=== PATIENT | female | born 1985 | race Caucasian/White ===

== ENCOUNTER → 2022-11-16 | Outpatient (CLI) | payer OTHER ==
--- NOTE | 2022-11-19 07:50 | MM ---
Reason for Exam: Screening (asymptomatic). Baseline mammogram. Patient History: Menarche at age 12. Patient has no children. Premenopausal. Last menstrual period: 10/24/2022 Risk Values: Blaire 5 year model risk: 0.4%. NCI Lifetime model risk: 12.3%. Prior Study Comparison: Patient's first Mammogram. Tissue Density: The breast tissue is heterogeneously dense. This may lower the sensitivity of mammography. Findings: Analyzed By CAD. There is no suspicious group of microcalcifications or new suspicious mass in either breast. Overall Assessment: Negative, BI-RAD 1 Management: Screening Mammogram of both breasts in 1 year. A clinical breast exam by your physician is recommended on an annual basis and results should be correlated with mammographic findings. Electronically signed and approved by: Leonardo Hidalgo M.D. Radiologis
== END | disposition home or self-care (01) ==
LOC: RADMAMWWP 13:39
PROVIDERS: ATTEND Family Medicine
DX: Z12.31 Encounter for screening mammogram for malignant neoplasm of breast (principal)
CPT/HCPCS: 77067

== ENCOUNTER 2025-03-23 07:16 | Observation (INO) | payer BC, OTHER ==
--- NOTE | 2025-03-23 07:50 | ED ---
General Adult HPI - General Chief complaint: Neuro Symptoms/Deficit Stated complaint: Tremors for 6 wks Time Seen by Provider: 03/23/25 07:19 Source: patient, family Mode of arrival: ambulatory Limitations: no limitations - History of Present Illness Initial comments: Dictation was produced using [employer] dictation software. please excuse any grammatical, word or spelling errors. Chief Complaint: 39-year-old female presents to the emergency department with uncontrollable tremors History of Present Illness: Patient is a 39-year-old female presents emergency department uncontrollable tremors. Patient has been having intractable symptoms for the last 6 weeks. She did follow-up with a neurologist out of [place]. She had her initial intake appointment had an MRI that showed a 2 mm punctate lesion in the left frontal area. Patient was prescribed baclofen. She was not given much details from the neurologist as to what is going on with her con dition. Has not had her follow-up appointment. Patient states that over the last 48 hours her symptoms progressed to the point where it is uncontrollable and unrelenting despite medication treatment. Denies any other symptoms. States that her symptoms affect her right leg and sometimes her right arm. States that she gets a little dizzy when she has these episodes.Patient does not take any medications outside of what was prescribed by neurology. Patient gets regular Depo shots. denies states that she is not sexually active The ROS documented in this emergency department record has been reviewed and confirmed by me. Those systems with pertinent positive or negative responses have been documented in the HPI. All other systems are other negative and/or noncontributory. - Related Data Allergies Allergy/AdvReac Type Severity Reaction Status Date / Time No Known Allergies Allergy Verified 03/23/25 07:20 Review of Systems ROS Statement: Those systems with pertinent positive or pertinent negative responses have been documented in the HPI. ROS Other: All systems not noted in ROS Statement are negative. Past Medical History Additional Past Medical History / Comment(s): endometreosis Past Surgical History: Appendectomy Smoking Status: Former smoker General Exam - General Exam Comments Initial Comments: PHYSICAL EXAM: General Impression: Alert and oriented x3, not in acute distress HEENT: Normocephalic atraumatic, extra-ocular movements intact, pupils equal and reactive to light bilaterally, mucous membranes moist. Cardiovascular: Heart regular rate and rhythm Chest: Able to complete full sentences, no retractions, no tachypnea Abdomen: abdomen soft, non-tender, non-distended, no organomegaly Musculoskeletal: Pulses present and equal in all extremities, no peripheral ed glaen Motor: no focal deficits noted Neurological: CN II-XII grossly intact, no focal motor or sensory deficits noted, persistent right lower extremity tremors despite intentional movement Skin: Intact with no visualized rashes Psych: Normal affect and mood Limitations: no limitations Course Vital Signs 03/23/25 03/23/25 07:18 07:37 Temperature 98.2 F 99.1 F Pulse Rate 122 H 104 H Respiratory 20 16 Rate Blood Pressure 122/70 O2 Sat by Pulse 98 99 Oximetry - Reevaluation(s) Reevaluation #1: 03/23/25 07:54 Case discussed with on-call neurologist, Dr. Brad rawls recommends that patient be admitted observation for seizure evaluation. Recommends EEG and observation admission. Request that after EEG be performed patient be given Ativan and Keppra Medical Decision Making - Medical Decision Making Was pt. sent in by a medical professional or institution (, PA, IMAGE CONSULTANT, urgent care, hospital, or halfway...) When possible be specific @ -No Did you speak to anyone other than the patient for history (EMS, parent, family, police, friend...)? What history was obtained from this source @ -No Did you review nursing and triage notes (agree or disagree)? Why? @ -I reviewed and agree with nursing and triage notes Were old charts reviewed (outside hosp., previous admission, EMS record, old EKG, old radiological studies, urgent care reports/EKG's, halfway records)? Report findings @ -No old charts were reviewed Differential Diagnosis (chest pain, altered mental status, abdominal pain women, abdominal pain men, vaginal bleeding, musculoskeletal, weakness, fever, dyspnea, syncope, headache, dizziness, GI bleed, back pain, seizure, CVA, palpatations, mental health)? @ -Differential Seizure: Recurrent seizure disorder, febrile seizure, alcohol withdrawal, stimulants, meningitis, encephalitis, intercranial hemorrhage, intracranial tumor, stroke, eclampsia, thyrotoxicosis, hypocalcemia, hyponatremia, hypernatremia, hypomagnesemia, psychogenic, this is not meant to be an all-inclusive list. EKG interpreted by me (3pts min.). @ -None done X-rays interpreted by me (1pt min.). @ -None done CT interpreted by me (1pt min.). @ -None done U/S interpreted by me (1pt. min.). @ -None done What testing was considered but not performed or refused? (CT, X-rays, U/S, labs)? Why? @ -None What meds were considered but not given or refused? Why? @ -None Was smoking cessation discussed for >3mins.? @ -No Were there social determinants of health that impacted care today? How? (Homelessness, low income, unemployed, alcoholism, drug addiction, transportation, low edu. Level, literacy, decrease access to med. care, mcc, rehab)? @ -No Was there de-escalation of care discussed even if they declined (Discuss DNR or withdrawal of care, Hospice)? DNR status @ -No What co-morbidities impacted this encounter? (DM, HTN, Smoking, COPD, CAD, Cancer, CVA, ARF, Chemo, Hep., AIDS, mental health diagnosis, sleep apnea, morbid obesity)? @ -None Was patient admitted / discharged? Hospital course, mention meds given and route, prescriptions, significant lab abnormalities, going to OR and other pertinent info. @ -31-year-old female presents to the ER for intractable tremors. Vital signs stable. Case discussed with neurology recommend observation admission for seizure evaluation. Labs unremarkable. Case discussed with hospitalist for admission Did you discuss the management of the patient with other professionals (professionals i.e. , PA, IMAGE CONSULTANT, lab, RT, psych nurse, social media assistant, digital media director, teacher, air crew officer, block and case maker)? Give summary @ -See above Was critical care preformed (if so, how long)? @ -Intractable tremors Undiagnosed new problem with uncertain prognosis? @ -No Drug Therapy requiring intensive monitoring for toxicity (Heparin, Nitro, Insulin, Cardizem)? @ -No Were any procedures done? @ -No Diagnosis/symptom? Acute, or Chronic, or Acute on Chronic? Uncomplicated (without systemic symptoms) or Complicated (systemic symptoms)? @ -Intractable tremors Side effects of treatment? @ -No Exacerbation, Progression, or Severe Exacerbation? @ -No Poses a threat to life or bodily function? How? (Chest pain, USA, MD, pneumonia, PE, COPD, DKA, ARF, appy, cholecystitis, CVA, Diverticulitis, Homicidal, Suicidal, threat to staff... and all critical care pts) @ -yes - Lab Data Result diagrams: 03/23/25 08:13 03/23/25 08:13 Lab Results 03/23/25 03/23/25 Range/Units 08:13 08:13 WBC 5.93 (4.50-10.00) 10*3/uL RBC 4.83 (4.10-5.20) 10*6/uL Hgb 14.2 (12.0-15.0) g/dL Hct 40.9 (37.2-46.3) % MCV 84.7 (80.0-97.0) fL MCH 29.4 (27.0-32.0) pg MCHC 34.7 (32.0-37.0) g/dL Plt Count 256 (140-440) 10*3/uL MPV 10.4 (9.5-12.2) fL Immature Gran % (Auto) 0.2 % Neutrophils % 60.6 % Lymphocytes % 32.5 % Monocytes % 5.6 % Eosinophils % 0.8 % Basophils % 0.3 % Immature Gran # 0.01 (0.00-0.04) 10*3/uL Neutrophils # 3.59 (1.80-7.70) 10*3/uL Lymphocytes # 1.93 (0.90-5.00) 10*3/uL Monocytes # 0.33 (0.20-1.00) 10*3/uL Eosinophils # 0.05 (0.04-0.35) 10*3/uL Basophils # 0.02 (0.00-0.10) 10*3/uL Sodium 139 (137-145) mmol/L Potassium 4.1 (3.5-5.1) mmol/L Chloride 110 H (98-107) mmol/L Carbon Dioxide 19 L (22-30) mmol/L Anion Gap 10 mmol/L BUN 11 (7-17) mg/dL Creatinine 0.76 (0.52-1.04) mg/dL Est GFR (CKD-EPI)AfAm >90 (>60 ml/min/1.73 sqM) Est GFR (CKD-EPI)NonAf >90 (>60 ml/min/1.73 sqM) Glucose 88 (74-99) mg/dL Calcium 9.4 (8.4-10.2) mg/dL Disposition Clinical Impression: Coarse tremors Disposition: ADMITTED IP TO THIS HOSP Condition: Fair Referrals: Love Rea DO [Primary Care Provider] - 1-2 days Decision Time: 09:03
[2025-03-23 08:20] LABS: Basophils # (A) 0.02 10*3/uL (0.00-0.10); Basophils % (A) 0.3 %; Eosinophils # (A) 0.05 10*3/uL (0.04-0.35); Eosinophils % (A) 0.8 %; HCT 40.9 % (37.2-46.3); HGB 14.2 g/dL (12.0-15.0); Lymphocytes # (A) 1.93 10*3/uL (0.90-5.00); Lymphocytes % (A) 32.5 %; MCH 29.4 pg (27.0-32.0); MCHC 34.7 g/dL (32.0-37.0); MCV 84.7 fL (80.0-97.0); Monocytes # (A) 0.33 10*3/uL (0.20-1.00); Monocytes % (A) 5.6 %; Neutrophils # (A) 3.59 10*3/uL (1.80-7.70); Neutrophils % (A) 60.6 %; Platelet Count 256 10*3/uL (140-440); RBC 4.83 10*6/uL (4.10-5.20); RDW 12.5 % (11.5-14.5); WBC 5.93 10*3/uL (4.50-10.00)
[2025-03-23] MEDS: SODIUM CHLORIDE 0.9% 1,000 ML IV STA (08:29)
[2025-03-23 08:39] LABS: African American GFR (CKD) >90 (>60 ml/min/1.73 sqM); Anion Gap 10 mmol/L; Blood Urea Nitrogen 11 mg/dL (7-17); Calcium 9.4 mg/dL (8.4-10.2); Carbon Dioxide 19 mmol/L (22-30); Chloride 110 mmol/L (98-107); Glucose 88 mg/dL (74-99); Non-African American GFR(CKD) >90 (>60 ml/min/1.73 sqM); Potassium 4.1 mmol/L (3.5-5.1); Sodium 139 mmol/L (137-145)
[2025-03-23] MEDS ORDERED: NALOXONE 0.4 MG/ML 1 ML VIAL IV PRN (09:00)
[2025-03-23] MEDS: SODIUM CHLORIDE 0.9% 1,000 ML IV SCH (09:40)
[2025-03-23] MEDS: LORazepam 1 MG/0.5 ML VIAL IV STA (11:56)
--- NOTE | 2025-03-23 12:03 | XR ---
EXAMINATION TYPE: XR chest 1V portable DATE OF EXAM: 03/23/2025 COMPARISON: NONE CLINICAL INDICATION: Female, 39 years old with history of shortness of breath; , TECHNIQUE: XR chest 1V portable views of the chest. FINDINGS: The lungs are clear and there is no pneumothorax, pleural effusion, or focal pneumonia. Heart size normal and no overt failure. Osseous structures intact vague nodule left lung base most likely relate d to nipple shadow.. IMPRESSION: 1. No acute process. Vague nodule left lung base most likely related to nipple shadow. Short-term fol low-up repeat chest x-ray with nipple markers could be obtained for confirmation. [facility], , 03/23/2025 12:01 PM
--- NOTE | 2025-03-23 13:52 | P.CNNES ---
History of Present Illness Consult date: 03/23/25 Requesting physician: Moises Dumas Reason for Consult: tremor vs seizure History of Present Illness: This is a 39-year-old woman who presents emergency department because of uncontrollable shaking of her extremities predominantly right lower. She states she has been having intermittent tremor of the right lower more than the left lower sometimes involving the upper going on for a while but happens sporadically but she does not lose consciousness, urinary or bowel incontinence or tongue bite. It seems over the past 6 weeks she has been having worsening dizziness, blurry vision, worsening of the tremor predominant in the right lower extremity and she tensed up in the upper. She denies any history of seizures. She is being evaluated by a neurologist over in [facility] team. She had MRI of the brain towards the end of January 2025 and it is reported that there is a small T2 white matter lesion over subcortical frontal suggestive of chronic microvascular disease. No enhancement. Also had MRI cervical spine and thoracic spine and there is also no enhancement but showed disc protrusion over the C5-C6 level with mild spinal canal narrowing as well as T11-T12 with mild to moderate spinal canal narrowing. She has a follow-up appointment towards approximately middle of March with her outpatient neurologist. For her tremor she was given Robaxin by her outpatient neurologist and she stated that it did not help. But then her primary care physician started on baclofen and she feels there is improvement with her tremor. She stated that her primary care physician felt it was more anxiety and started her on Lexapro for over the last 6 to 7 months and she stated that she does not have any benefits. She denies any stressors. Review of Systems As per HPI. Past Medical History Additional Past Medical History / Comment(s): endometreosis Past Surgical History: Appendectomy Smoking Status: Former smoker Medications and Allergies Home Medications Medication Instructions Recorded Confirmed Type Baclofen 10 mg PO TID 03/23/25 03/23/25 History Escitalopram Oxalate [Lexapro] 10 mg PO HS 03/23/25 03/23/25 History SUMAtriptan succinate [Imitrex] 50 mg PO DAILY PRN 03/23/25 03/23/25 History Ubrogepant [Ubrelvy] 100 mg PO DAILY PRN 03/23/25 03/23/25 History medroxyPROGESTERone [Depo-Provera] 150 mg IM Q90D 03/23/25 03/23/25 History Allergies Allergy/AdvReac Type Severity Reaction Status Date / Time No Known Allergies Allergy Verified 03/23/25 09:41 Physical Examination - Vital Signs Vital Signs: Vital Signs Temp Pulse Resp BP Pulse Ox 03/23/25 12:02 63 16 99/65 98 03/23/25 07:37 99.1 F 104 H 16 165/129 99 03/23/25 07:18 98.2 F 122 H 20 122/70 98 Intake and Output 03/22/25 03/23/25 03/23/25 22:59 06:59 14:59 Other: Weight 54.431 kg GENERAL: The patient is sitting in a recliner chair and is not in acute distress. NEUROLOGICAL: Higher mental function: The patient is awake, alert, oriented to self, place and time. Patient is following commands. No aphasia and no neglect. Cranial nerves: The pupils are round, equal and reactive to light and accommodation. Visual de leon are full to confrontation throughout. Extraocular movement is intact no nystagmus is noted. Facial sensation is normal to touch throughout. The facial strength is normal throughout. Hearing is normal bilaterally to hand rub. Tongue is midline and moved [id number] without any difficulty. No dysarthria is noted. Shoulder shrug is normal bilaterally. Motor: The strength is to assess individual muscle strength because of her tremor and patient was having tremor initially over the right lower extremity that is nonrhythmic that changes with intensity and she is verbalizing and following commands during this episode. During this episode she was being hooked up on the EEG and upon telling her that it is good that we will capture this episode and that we need to capture more her tremor got worse and involved bilateral lower and at times involved even the upper and again nonrhythmic with change in intensity and she is verbalizing during this episode. Then it would resolve. She would lift the bilateral upper lower extremity above gravity. Normal bulk. Cerebellum: Normal finger to nose heel to barajas bilaterally. Sensation: Sensation is normal to touch throughout. Reflexes (right/left): Hard to assess reflexes since upon trying to assess him she was started having tremors. Plantars are downgoing bilaterally. Results - Laboratory Findings CBC and BMP: 03/23/25 08:13 03/23/25 08:13 Abnormal Lab Findings: Abnormal Labs 03/23/25 08:13 Chloride 110 H Carbon Dioxide 19 L Assessment and Plan Assessment: This is a 39-year-old woman who presents the emergency department because of worsening of her tremor predominantly in the right lower extremity but also involving the left side as well that is nonrhythmic and change in intensity and it seems she has been having it for months but she states it getting worse over the last 6 weeks. She had MRI of the brain cervical spine thoracic spine as an outpatient was evaluated by outpatient neurologist and there is no enhancement or mass on the MRI. She does not have any history of stroke or seizures. Primary care physician as an outpatient felt it was an anxiety and was placed on Lexapro. On my examination I felt was functional and on EEG it captured her episodes and revealed nonepileptic seizures. Tremor is functional neurological disorder. EEG captured episodes and is nonepileptic seizure. Plan: I recommend the patient to continue to follow-up with her outpatient neurologist over in [facility] and she has a follow-up appointment in the middle of March 2025. The patient was given Keppra 1000 mg once as well as Ativan 2 mg once. I will avoid any use of antiseizure medications since these episodes are nonepileptic. Recommend the patient to follow-up with a psychiatrist as well as therapist as an outpatient within 2 weeks. Will defer the rest of the medical management to primary and other specialist I discussed with the plan with patient and her who was at bedside. Thank you for the consultation. No further neurological workup. Will sign off. Please reconsult if needed. Time with Patient: Greater than 30
[2025-03-23] MEDS: levETIRAcetam IV 500 MG/5 ML VIAL IVP STA (15:13)
--- NOTE | 2025-03-23 16:29 | HP ---
HISTORY AND PHYSICAL CHIEF COMPLAINT: Possibly seizures. HISTORY OF PRESENT ILLNESS: This is a 39-year-old woman with a past medical history of endometriosis, being followed by Dr. Lanza in the outpatient, complaining of possibly seizures. The patient was apparently evaluated in the outpatient setting and as well as at [facility] briefly. The patient has uncontrollable movements and tremors of the hands and the patient apparently without any loss of consciousness, bowel incontinence, or tongue bite. The patient came to [facility] and admitted for further evaluation and treatment. There is no history of fever, rigors, or chills at this time. PAST MEDICAL HISTORY: History of endometriosis, appendectomy, and anxiety. MEDICATIONS: Prior to admission include Imitrex, dose and rest of the medications reviewed. ALLERGIES: None. FAMILY HISTORY: No history of heart disease or strokes. SOCIAL HISTORY: Previous smoker. REVIEW OF SYSTEMS: A 14-point review of systems negative except as mentioned earlier. PHYSICAL EXAMINATION: VITAL SIGNS: Pulse is 104, blood pressure ntd, respirations 16. HEENT: Conjunctivae normal. NECK: No jugular venous distention. CARDIOVASCULAR: S1, S2. RESPIRATORY: Breath sounds diminished at the bases. No rhonchi. No crackles. ABDOMEN: Soft, nontender. LEGS: No edema. NERVOUS SYSTEM: Nonfocal. LABORATORY DATA: Reviewed. ASSESSMENT: 1. Abnormal movements, seizures versus pseudoseizures. 2. Decreased CO2. 3. Endometriosis. 4. Anxiety. RECOMMENDATIONS AND DISCUSSION: This is a 39-year-old woman presented with multiple complex medical issues. We will monitor the patient closely. I would recommend telemetry, EEG, closely follow with Neurology. Guarded prognosis because of multiple complex medical conditions. Further recommendations to follow. See orders for details. The patient has received 1 dose of Ativan and Keppra in the ER. MMODL / IJN: [id number] / MTDD
[2025-03-23 17:37] LABS: Bilirubin,Urine Negative (Negative); Blood,Urine Small (Negative); Color,Urine Colorless; Glucose,Urine (UA) Negative (Negative); Ketones,Urine Trace (Negative); Leukocyte Esterase,Urine Negative (Negative); Mucus,Urine Rare /hpf; Nitrite,Urine Negative (Negative); PH, Urine 6.5 (5.0-8.0); Protein,Urine Negative (Negative); RBC,Urine 1 /hpf (0-5); Specific Gravity,Urine 1.019 (1.001-1.035); Squamous Epithelial Cell,Urine 4 /hpf (0-4); Urobilinogen,Urine <2.0 mg/dL (<2.0); WBC,Urine 2 /hpf (0-5)
[2025-03-23 17:51] LABS: Barbiturate Screen,Urine Not Detected (NotDetected); Benzodiazepines Screen,Urine Detected (NotDetected); Opiate Screen,Urine Not Detected (NotDetected); Oxycodone Screen, Urine Not Detected (NotDetected); Phencyclidine Screen,Urine Not Detected (NotDetected); Tricyclic Antidepressant,Urine Not Detected (NotDetected); Urn Cannabinoid Scrn Not Detected (NotDetected)
[2025-03-23] MEDS: HEPARIN SODIUM,PORCINE 5,000 UNIT/ML 1 ML VIAL SQ SCH (20:40)
--- NOTE | 2025-03-24 04:44 | EEG ---
ELECTROENCEPHALOGRAM REPORT CLINICAL HISTORY: This is a 39-year-old woman with right flank shaking. The video EEG is obtained to evaluate for seizure epileptiform activity. RELEVANT MEDICATIONS: 1. Keppra. 2. Ativan. EEG TYPE: This is a routine 21 channel EEG with video using the 10/20 electrode placement system. DESCRIPTION: Wakefulness is only obtained. During awake state, the posterior-dominant rhythm consists of [id number] voltage of 10-11 hertz activity that is well modulated state. There is no physiological stage 2 sleep architecture. There is no focal slowing. Interictal and ictal, the patient had episode of right leg shaken/tremor was captured during this recording and the background shows 10 to 10.5 hertz activity intermixed with myogenic activity and at times, clearly the background is just normal without any significant myogenic activity. Clinically, the patient is having right tremor that is nonrhythmic. Her episode is nonepileptic. There is no epileptiform discharge, or seizure during this EEG. ACTIVATION PROCEDURE: Photic stimulation did not evoke a posterior driving response. There is no abnormality during the photic stimulation. Hyperventilation is not performed. CLINICAL INTERPRETATION: This is a normal routine EEG during awake state. The background is normal. There is no focal slowing. Her episodes are nonepileptic in nature (psychogenic nonepileptic seizure). Otherwise, no epileptiform discharge or seizure. No electrographic seizure is noted. Clinical correlation is recommended. JOSÉ MIGUEL / BLAYNE: [id number] /
[2025-03-24] MEDS: PANTOPRAZOLE 40 MG TABLET PO SCH (06:30)
[2025-03-24 08:02] LABS: Basophils # (A) 0.03 X 10*3/uL (0.00-0.10); Basophils % (A) 0.5 %; Eosinophils # (A) 0.08 X 10*3/uL (0.04-0.35); Eosinophils % (A) 1.4 %; HCT 39.1 % (37.2-46.3); HGB 12.4 g/dL (12.0-15.0); Immature Grans, Automated 0.20 %; Lymphocytes # (A) 2.40 X 10*3/uL (0.90-5.00); Lymphocytes % (A) 43.2 %; MCH 28.8 pg (27.0-32.0); MCHC 31.7 g/dL (32.0-37.0); MCV 90.9 FL (80.0-97.0); Monocytes # (A) 0.35 X 10*3/uL (0.20-1.00); Monocytes % (A) 6.3 %; NRBC Per 100 WBC 0 X 10*3/uL (0.00-0.01); Neutrophils # (A) 2.69 X 10*3/uL (1.80-7.70); Neutrophils % (A) 48.4 %; Platelet Count 227 X 10*3/uL (140-440); RBC 4.30 X 10*6/uL (4.10-5.20); RDW 12.7 % (11.5-14.5); WBC 5.56 X 10*3/uL (4.50-10.00)
[2025-03-24 08:03] VITALS: BP 94/60; PULSE 76; RESP 14; TEMP 98.2
[2025-03-24 08:15] LABS: ALT 16 U/L (8-44); AST 13 U/L (13-35); Albumin 3.7 g/dL (3.8-4.9); Albumin/Globulin Ratio 2.18 Ratio (1.60-3.17); Alkaline Phosphatase 59 U/L (41-126); Anion Gap 9.70 mmol/L (4.00-12.00); BUN/Creat Ratio 22.62 Ratio (12.00-20.00); Blood Urea Nitrogen 18.1 mg/dL (9.0-27.0); Calcium 8.8 mg/dL (8.7-10.3); Carbon Dioxide 20.3 mmol/L (21.6-31.8); Chloride 111 mmol/L (96-109); Globulin 1.7 g/dL (1.6-3.3); Glucose 110 mg/dL (70-110); Potassium 4.6 mmol/L (3.5-5.5); Sodium 141 mmol/L (135-145); Total Protein 5.4 g/dL (6.2-8.2)
== END 2025-03-24 11:52 | disposition home or self-care (01) ==
LOC: EC 07:16 → 6NMEDSUR 09:05
PROVIDERS: ADMIT Hospitalist; ATTEND Hospitalist
DX: G25.9 Extrapyramidal and movement disorder, unspecified (principal); F41.9 Anxiety disorder, unspecified; N80.9 Endometriosis, unspecified; Z87.891 Personal history of nicotine dependence; Z79.899 Other long term (current) drug therapy
CPT/HCPCS: 96361 ×2; 96372 ×2; 96374; 99285; 36415; 95816; 93005; 80053; 80048; 85652; 82550; 85025 ×2; 86140; 81001; 80306; 71045; G0378 ×2; J2060; J1644 ×2